=== PATIENT | female | born 1955 | race Caucasian/White ===

== ENCOUNTER → 2024-06-16 13:28 | Outpatient (REF) | payer MEDICARE, OTHER, SELFPAY | LOC: WDC 13:28 | PROVIDERS: ATTENDING PHYSICIAN Family Medicine; FAMILY PHYSICIAN Family Medicine | DX: M81.0 Age-related osteoporosis without current pathological fracture (principal); Z12.31 Encounter for screening mammogram for malignant neoplasm of breast | CPT/HCPCS: 77063; 77067 ==

== ENCOUNTER 2025-07-23 06:20 | Day surgery (SDC) | payer MEDICARE, OTHER, SELFPAY | END 2025-07-23 12:57 | disposition home or self-care (01) | LOC: GI 06:20 | PROVIDERS: ATTENDING PHYSICIAN Internal Medicine Gastroenterology | DX: Z12.11 Encounter for screening for malignant neoplasm of colon (principal); K57.30 Diverticulosis of large intestine without perforation or abscess without bleeding; K64.8 Other hemorrhoids; Z86.0100 Personal history of colon polyps, unspecified | CPT/HCPCS: G0105 ==